=== PATIENT | female | born 1975 | race Caucasian/White ===

== ENCOUNTER 2018-10-08 17:07 | Emergency (ER) | payer OTHER ==
[~2018-10-08] VITALS: Ht 185.4 cm; Wt 80.3 kg
--- OUTSIDE RECORDS SUMMARY | 2018-10-08 17:10 | XMS REPORT ---
Author Author [facility] Address Unknown Phone Unavailable Care Team Providers Care Telephone Services Sales Representative Name Role Phone Unavailable Unavailable Payers Payer Name Policy Type Policy Number Effective Date Expiration Date Problems This patient has no known problems. Allergies, Adverse Reactions, Alerts Allergy Name Allergy Type Status Severity Reaction(s) Onset Date Inactive Date Treating Clinician Comments lidocaine HCl DA Active SV 2010-06-06 00:00:00 Medications This patient has no known medications. Results Test Description Test Time Test Comments Text Results Atomic Results Result Comments COMPREHENSIVE METABOLIC PANEL 2018-10-01 10:56:00 SODIUM (test code=NA) 135 mmol/L 136-145 POTASSIUM (test code=K) 5.2 mmol/L 3.5-5.1 CHLORIDE (test code=CL) 99.0 mmol/L 98-107 CARBON DIOXIDE (test code=CO2) 26.8 mmol/L 21-32 GLUCOSE (test code=GLU) 97 mg/dL 70-110 BLOOD UREA NITROGEN (test code=BUN) 16 mg/dL 7-18 GLOMERULAR FILTRATION RATE (test code=GFR) 79.0 >60 Unit of measure: mL/min/1.73 [id number] Range:Healthy Adults >90 mL/min/1.73 m2 For Chronic Kidney Disease: Stage II Mild Decrease in GFR 60-90 Stage III Moderate Decrease in GFR 30-59 Stage IV Severe Decrease in GFR 15-29 Stage V Kidney Failure <15 CREATININE (test code=CREAT) 0.80 mg/dL 0.55-1.30 TOTAL PROTEIN (test code=PROT) 7.5 g/dL 6.4-8.2 ALBUMIN (test code=ALB) 4.1 g/dL 3.4-5.0 GLOBULIN (test code=GLOB) 3.4 g/dL 2.2-4.2 ALBUMIN/GLOBULIN RATIO (test code=A/G) 1.2 0.7-2.0 CALCIUM (test code=CA) 9.2 mg/dL 8.2-10.1 BILIRUBIN TOTAL (test code=BILT) 0.30 mg/dL 0.2-1.00 SGOT/AST (test code=AST) 22.0 U/L 15-37 SGPT/ALT (test code=ALT) 25.0 U/L 12-78 Please note new normal range. ALKALINE PHOSPHATASE TOTAL (test code=ALKP) 62 U/L 46-116 CBC W/AUTO [id number] 10:32:00* Test Item Value Reference Range Comments WHITE BLOOD CELL (test code=WBC) 8.2 K/mm3 5.8-11.0 RED BLOOD CELL (test code=RBC) 4.32 M/mm3 4.2-5.4 HEMOGLOBIN (test code=HGB) 13.3 g/dL 12-16 HEMATOCRIT (test code=HCT) 40.8 % 37-47 MEAN CELL VOLUME (test code=MCV) 94 fL 80-98 MEAN CELL HGB (test code=MCH) 30.8 pg 27-34 MEAN CELL HGB CONCENTRATION (test code=MCHC) 32.6 g/dL 30.8-34.1 RED CELL DISTRIBUTION WIDTH (test code=RDW) 12.1 % 11-16 PLT (test code=PLT) 341 K/mm3 130-400 MEAN PLATELET VOLUME (test code=MPV) 10.2 fL 8.9-12.1 NEUTROPHIL % (test code=NT%) 56.3 % 45-70 LYMPHOCYTE % (test code=LY%) 28.8 % 20-40 MONOCYTE % (test code=MO%) 11.5 % 3-10 EOSINOPHIL % (test code=EO%) 2.1 % 1-5 BASOPHIL % (test code=BA%) 0.9 % 0.0-1.1 NEUTROPHIL # (test code=NT#) 4.63 K/mm3 2.00-7.50 LYMPHOCYTE # (test code=LY#) 2.36 K/mm3 1.50-4.00 MONOCYTE # (test code=MO#) 0.94 K/mm3 0.2-0.8 EOSINOPHIL # (test code=EO#) 0.17 K/mm3 0.04-0.4 BASOPHIL # (test code=BA#) 0.07 K/mm3 0.02-0.10 MANUAL DIFF REQUIRED (test code=MDIFF) NO MANUAL DIFF NUCLEATED RED BLOOD CELL (test code=NRBC) 0 % 0-0
[2018-10-08 18:01] LABS: BASOPHILS # (AUTO) 0.1 (0.0-0.1); BASOPHILS % 0.7 % (0.0-1.0); EOSINOPHILS # (AUTO) 0.2 (0.0-0.4); EOSINOPHILS % 2.2 % (0.0-6.0); HEMOGLOBIN 13.4 g/dL (12.0-16.0); LYMPHOCYTES # (AUTO) 2.9 (1.0-3.2); LYMPHOCYTES % 34.9 % (18.0-39.1); MEAN CORPUSCULAR HEMOGLOBIN 31.4 pg (28-32); MEAN CORPUSCULAR HGB CONC 34.4 g/dL (31-35); MEAN CORPUSCULAR VOLUME 91.3 fL (81-99); MONOCYTES # (AUTO) 0.8 (0.2-0.8); MONOCYTES % 9.3 % (4.4-11.3); NEUTROPHILS # (AUTO) 4.4 (2.1-6.9); NEUTROPHILS % 52.8 % (38.7-80.0); PLATELET COUNT 305 x10e3/uL (140-360); RED BLOOD COUNT 4.27 x10e6/uL (3.6-5.1); RED CELL DISTRIBUTION WIDTH 11.9 % (11.7-14.4)
[2018-10-08 18:04] LABS: BILIRUBIN,URINE NEGATIVE (NEGATIVE); CLARITY,URINE CLEAR (CLEAR); COLOR,URINE YELLOW (YELLOW); KETONES,URINE NEGATIVE (NEGATIVE); LEUKOCYTE ESTERASE ,URINE NEGATIVE (NEGATIVE); NITRITE,URINE NEGATIVE (NEGATIVE); PROTEIN,URINE DIPSTICK NEGATIVE (NEGATIVE); URINE UROBILINOGEN 0.2 mg/dL (0.2 - 1)
[2018-10-08 18:08] LABS: INR 0.95; PROTHROMBIN TIME 13.2 seconds (11.9-14.5)
[2018-10-08 18:09] LABS: PARTIAL THROMBOPLASTIN TIME 30.7 seconds (23.8-35.5)
[2018-10-08 18:17] LABS: ALANINE AMINOTRANSFERASE 22 IU/L (0-55); ALBUMIN 4.4 g/dL (3.5-5.0); ALBUMIN/GLOBULIN RATIO 1.2 (0.8-2.0); ALKALINE PHOSPHATASE 57 IU/L (40-150); ANION GAP 14.8 mmol/L (8-16); BLOOD UREA NITROGEN 13 mg/dL (7-26); BUN/CREATININE RATIO 15 (6-25); CALCIUM 10.4 mg/dL (8.4-10.2); CARBON DIOXIDE 24 mmol/L (22-29); CHLORIDE 102 mmol/L (98-107); CREATINE KINASE 83 IU/L (29-168); CREATININE, SERUM 0.85 mg/dL (0.57-1.11); EST GLOMERULAR FILTRATION RATE > 60 ML/MIN (60-); GLUCOSE 102 mg/dL (74-118); POTASSIUM 3.8 mmol/L (3.5-5.1); SODIUM 137 mmol/L (136-145)
[2018-10-08] MEDS ORDERED: DIATRIZOATE MEGL/DIATRIZOA SOD 30 ML BTL PO ONE (19:55)
--- NOTE | 2018-10-08 21:52 | Diagnostic Imaging Report ---
EXAM: CT Abdomen and Pelvis WITH contrast INDICATION: ^left side pain, interittent rectal bleeding ^[id number] ^2046 ^Y COMPARISON: None. TECHNIQUE: Abdomen and pelvis were scanned utilizing a multidetector helical scanner from the lung base to the pubic symphysis after administration of IV contrast. Coronal and sagittal reformations were obtained. Dose modulation, iterative reconstruction, and/or weight based adjustment of the mA/kV was utilized to reduce the radiation dose to as low as reasonably achievable. Routine protocol was performed. Scan was performed when during portal venous phase. IV CONTRAST: 100 mL of Isovue-370 ORAL CONTRAST: Gastroview COMPLICATIONS: None RADIATION DOSE: Total DLP: 297.60 mGy*cm Estimated effective dose: (DLP x 0.015 x size factor) mSv CTDIvol has been reviewed. It is below the limits set by the Radiation Protocol Committee (RPC). FINDINGS: LINES and TUBES: None. LOWER THORAX: Unremarkable HEPATOBILIARY: No focal hepatic lesions. No biliary ductal dilation. GALLBLADDER: No radio-opaque stones or sludge. No wall thickening. SPLEEN: No splenomegaly. PANCREAS: No focal masses or ductal dilatation. ADRENALS: No adrenal nodules KIDNEYS/URETERS: Kidneys enhance symmetrically. No hydronephrosis. No cystic or solid mass lesions. No stones. GI TRACT: No abnormal wall thickening, or evidence of bowel obstruction. Mild gaseous distention of rectosigmoid. Appendix is normal. PELVIC ORGANS/BLADDER: Unremarkable. Hysterectomy. LYMPH NODES: No lymphadenopathy. VESSELS: Unremarkable. PERITONEUM / RETROPERITONEUM: No free air or fluid. BONES: Right iliac sclerotic focus, likely a bone island. SOFT TISSUES: Unremarkable. IMPRESSION: 1. No acute inflammatory process in the abdomen/pelvis, to explain patient's symptoms. Signed by: Dr. Fawad Huertas MD on 10/08/2018 9:49 PM
[2018-10-08] MEDS ORDERED: IOPAMIDOL 370 MG/ML 200 ML INFUS..BTL INJ ONE (22:35)
[2018-10-08] MEDS ORDERED: SODIUM CHLORIDE 0.9% 50ML 50 ML ONE (22:35)
== END 2018-10-08 22:37 | disposition home or self-care (01) ==
LOC: ER 17:07
DX: K92.1 Melena (principal); R10.12 Left upper quadrant pain; M35.00 Sjogren syndrome, unspecified; M06.9 Rheumatoid arthritis, unspecified; I10 Essential (primary) hypertension; Z85.42 Personal history of malignant neoplasm of other parts of uterus
CPT/HCPCS: 36415; 74177; 80053; 81001; 82550; 82553; 84484; 85025; 85610; 85730; 99284; Q9967